=== PATIENT | female | born 1965 | race American Indian/Alaskan Native ===

== ENCOUNTER 2022-04-28 12:29 | Inpatient (IN) | payer MEDICARE, MEDICAID ==
--- NOTE | 2022-04-28 12:05 | Consultation ---
History of Present Illness Consult date: 04/28/22 History of present illness: [facility] Consult Note # Demographics Consult Type: Acute Stroke Level 1 (0-4.5 hrs) Patient Location: Emergency Room First Name: Nadine Last Name: Yovany Date of : 1965 Age: 56 Gender: Female Facility: [facility] Time of Initial Page ( Time): 04/28/2022, 11:43 Time of Return Call (Eastern Time): 04/28/2022, 11:43 # HPI Chief Complaint: speech changes weakness (focal) History: Per ER staff of EMS report, patient with dysarthria, facial droop & unsteady gait this morning at 6:30am. Last Known Normal: I have collected independent history specific to time last normal or last known well. We have collaborated with the provider and at this time, we have the most current timeline with the information that is available. 6:30am # Scores Time of exam and NIHSS ( Time): 04/28/2022, 11:53 Level of Consciousness 1a: [1] = Not alert; but arousable by minor stim LOC Questions 1b: [2] = Answers neither correctly LOC Commands 1c: [2] = Performs neither correctly Best Gaze 2: [0] = Normal Visual 3: [0] = No visual loss Facial Palsy 4: [0] = Normal symmetrical movements Motor Arm Left 5a: [4] = No movement Motor Arm Right 5b: [4] = No movement Motor Leg Left 6a: [4] = No movement Motor Leg Right 6b: [4] = No movement Limb Ataxia 7: [0] = Absent Sensory 8: [2] = Severe to total sensory loss Best Language 9: [3] = Mute Dysarthria 10: [2] = Severe dysarthria Extinction and Inattention 11: [0] = No abnormality NIHSS Total: 28 VAN Screening: Positive # Exam SBP: 260 DBP: 149 Mental Status: comatose Language: No spontaneous speech observed # ROS Unable to obtain ROS: altered mentation # PMH-FH-SH Past Medical History: hypertension stroke 2017 & 2020 Medications: antihypertensive aspirin # Data Glucose: 82 per EMR Time Head CT personally read by me ( Time): 04/28/2022, 12:[address]: no bleed preliminarily reviewed by me, please refer to radiology read for official reading # Assessment Impression: Altered Mental Status Stroke versus seizure versus PRES # Plan Thrombolytic/Intervention: NOT IV Thrombolysis or IA Intervention candidate Thrombolytic Exclusion: > 4.5 hours Target Blood Pressure: SBP < 220 Labs: ABG Ammonia B12 CBC comprehensive metabolic panel ESR hemoglobin A1c lipid panel thiamine troponin TSH urine drug screen ua Imaging: (urgency: STAT): CT Angiogram Head and CT Angiogram Neck AND call back with results if abnormal Imaging: (urgency: routine): MRI Brain without contrast Diagnostic Test: echo without bubble study EEG Therapy/Evaluation: NPO until swallow evaluation PT/OT evaluation speech/swallow consultation Medication: Continue outpatient medication regimen pending diagnostic results. DVT Prophylaxis: SCD chemical DVT prophylaxis Other: permissive hypertension telemetry monitoring I have discussed my recommendations with the referring provider Disposition: admit Medications and Allergies Allergies Allergy/AdvReac Type Severity Reaction Status Date / Time No Known Allergies Allergy Unverified 04/28/22 11:57
--- NOTE | 2022-04-28 12:32 | Emergency Department Report ---
ED Neuro Deficit HPI - General Chief Complaint: Neuro Symptoms/Deficit Stated Complaint: CVA Time Seen by Provider: 04/28/22 12:00 Source: EMS Mode of arrival: Stretcher Limitations: Altered Mental Status - History of Present Illness Initial Comments: Is a 56-year-old female history of stroke, history of hypertension here with complaints of possible stroke alert. Patient has dysarthria facial droop and unsteady gait that was noted at 6:30 AM. Patient presented to the emergency department after noon on today. She was outside of the window for tPA and patient unable to give any additional history at this time. - Related Data Allergies/Adverse Reactions: Allergies Allergy/AdvReac Type Severity Reaction Status Date / Time No Known Allergies Allergy Unverified 04/28/22 11:57 ED Review of Systems ROS: Stated complaint: CVA Other details as noted in HPI Comment: Unobtainable due to pts medical conditions ED Past Medical Hx - Past Medical History Hx Hypertension: Yes Hx CVA: Yes ED Neuro Physical Exam - General Limitations: Altered Mental Status General appearance: obtunded Suspected Stroke: Yes - Head Head exam: Present: atraumatic, normocephalic - Eye Eye exam: Present: other (dysconjugate gaze noted) - ENT ENT exam: Present: mucous membranes moist - Neck Neck exam: Present: normal inspection - Respiratory Respiratory exam: Present: normal lung sounds bilaterally. Absent: respiratory distress - Cardiovascular Cardiovascular Exam: Present: regular rate, normal rhythm. Absent: systolic murmur, diastolic murmur, rubs, gallop - GI/Abdominal GI/Abdominal exam: Present: soft, normal bowel sounds. Absent: distended, tenderness - Rectal Rectal exam: Present: deferred - Extremities Exam Extremities exam: Present: normal inspection - Back Exam Back exam: Present: normal inspection - Neurological Exam Neurological exam: Present: altered, motor sensory deficit - NIHSS Assessment Interval: Baseline 1a. Level of Consciousness: arousable/minor stimuli 1b. LOC Questions: answers no questions correctly 1c. LOC Commands: performs no tasks correctly 2. Best Gaze: normal 3. Visual: no visual loss 4. Facial Palsy: bilateral complete paralysis 5b. Motor Arm Right: no gravity effort 5a. Motor Arm Left: no gravity effort 6a. Motor Leg Left: no gravity effort 6b. Motor Leg Right: no gravity effort 7. Limb Ataxia: absent 8. Sensory: severe/total sensory loss 9. Best Language: mute/global aphasia 10. Dysarthria: severe dysarthria 11. Extinction/Inattention: visual/tactile inattention Total Score: 28 Stroke Severity: Severe Stroke - Psychiatric Psychiatric exam: Present: other (unable to assess) - Skin Skin exam: Present: warm, dry, intact, normal color. Absent: rash ED Course Vital Signs 04/28/22 04/28/22 04/28/22 12:02 12:36 12:37 Temperature Pulse Rate 80 54 L 73 Respiratory 15 19 17 Rate Blood Pressure Blood Pressure 224/106 239/110 [Right] O2 Sat by Pulse 100 100 95 Oximetry 04/28/22 04/28/22 04/28/22 12:38 12:46 13:00 Temperature Pulse Rate 78 69 70 Respiratory 11 L 16 Rate Blood Pressure 239/110 200/78 189/75 Blood Pressure [Right] O2 Sat by Pulse 99 100 Oximetry 04/28/22 04/28/22 04/28/22 13:16 13:30 13:46 Temperature Pulse Rate 69 70 72 Respiratory 26 H 13 15 Rate Blood Pressure 191/87 183/105 197/166 Blood Pressure [Right] O2 Sat by Pulse 99 99 100 Oximetry 04/28/22 04/28/22 04/28/22 14:00 15:28 19:35 Temperature 98.9 F Pulse Rate 71 70 90 Respiratory 12 17 20 Rate Blood Pressure 146/89 Blood Pressure 165/58 145/78 [Right] O2 Sat by Pulse 100 100 99 Oximetry - Consultations Consultation #1: 04/28/22 12:[address] Pena who is on-call for neuro. Given patient's last known normal was reportedly at 630 patient is not a tPA candidate. We are currently treating patient's blood pressure with the labetalol and he recommends CTA imaging which is ordered as well as MRI and admission for further work-up. - Lab Data Result diagrams: 04/28/22 12:43 04/28/22 12:43 Lab Results 04/28/22 04/28/22 04/28/22 Range/Units 12:43 12:43 12:43 WBC 3.1 L (4.5-11.0) K/mm3 RBC 4.38 (3.65-5.03) M/mm3 Hgb 13.7 (10.1-14.3) gm/dl Hct 41.2 (30.3-42.9) % MCV 94 (79-97) fl MCH 31 (28-32) pg MCHC 33 (30-34) % RDW 14.8 (13.2-15.2) % Plt Count 187 (140-440) K/mm3 Lymph % (Auto) 31.2 (13.4-35.0) % Victoria % (Auto) 8.2 H (0.0-7.3) % Eos % (Auto) 5.5 H (0.0-4.3) % Baso % (Auto) Spice Blender Lymph # (Auto) 1.0 L (1.2-5.4) K/mm3 Victoria # (Auto) 0.3 (0.0-0.8) K/mm3 Eos # (Auto) 0.2 (0.0-0.4) K/mm3 Baso # (Auto) 0.1 (0.0-0.1) K/mm3 Seg Neutrophils % 53.2 (40.0-70.0) % Seg Neutrophils # 1.7 L (1.8-7.7) K/mm3 PT 13.2 (12.2-14.9) Sec. INR 0.91 (0.87-1.13) APTT 29.7 (24.2-36.6) Sec. Thrombin Time 15.6 (15.1-19.6) Sec. Sodium 139 (137-145) mmol/L Potassium 3.9 (3.6-5.0) mmol/L Chloride 105.4 (98-107) mmol/L Carbon Dioxide 24 (22-30) mmol/L Anion Gap 14 mmol/L BUN 8 (7-17) mg/dL Creatinine 0.6 (0.6-1.2) mg/dL Estimated GFR > 60 ml/min BUN/Creatinine Ratio 13 % Glucose 100 (65-100) mg/dL Calcium 8.6 (8.4-10.2) mg/dL Total Bilirubin 0.50 (0.1-1.2) mg/dL AST 18 (5-40) units/L ALT 13 (7-56) units/L Alkaline Phosphatase 80 (35-129) units/L Total Creatine Kinase 313 H (30-135) units/L CK-MB (CK-2) 2.5 (0.0-4.0) ng/mL CK-MB (CK-2) Rel Index 0.7 (0-4) Troponin T < 0.010 (0.00-0.029) ng/mL Total Protein 7.5 (6.3-8.2) g/dL Albumin 3.9 (3.9-5) g/dL Albumin/Globulin Ratio 1.1 % Urine Color (Yellow) Urine Turbidity (Clear) Urine pH (5.0-7.0) Ur Specific [place] (1.003-1.030) Urine Protein (Negative) mg/dL Urine Glucose (UA) (Negative) mg/dL Urine Ketones (Negative) mg/dL Urine Blood (Negative) Urine Nitrite (Negative) Urine Bilirubin (Negative) Urine Urobilinogen (<2.0) mg/dL Ur Leukocyte Esterase (Negative) Urine WBC (Auto) (0.0-6.0) /HPF Urine RBC (Auto) (0.0-6.0) /HPF U Epithel Cells (Auto) (0-13.0) /HPF Urine Bacteria (Auto) (Negative) /HPF Urine WBC Clumps /HPF Urine Trichomonas /HPF Urine Opiates Screen Urine Methadone Screen Ur Barbiturates Screen Ur Phencyclidine Scrn Ur Amphetamines Screen U Benzodiazepines Scrn Urine Cocaine Screen U Marijuana (THC) Screen Drugs of Abuse Note Plasma/Serum Alcohol (0-0.07) % Blood Type Antibody Screen 04/28/22 04/28/22 04/28/22 Range/Units 12:43 12:43 12:57 WBC (4.5-11.0) K/mm3 RBC (3.65-5.03) M/mm3 Hgb (10.1-14.3) gm/dl Hct (30.3-42.9) % MCV (79-97) fl MCH (28-32) pg MCHC (30-34) % RDW (13.2-15.2) % Plt Count (140-440) K/mm3 Lymph % (Auto) (13.4-35.0) % Victoria % (Auto) (0.0-7.3) % Eos % (Auto) (0.0-4.3) % Baso % (Auto) Lymph # (Auto) (1.2-5.4) K/mm3 Victoria # (Auto) (0.0-0.8) K/mm3 Eos # (Auto) (0.0-0.4) K/mm3 Baso # (Auto) (0.0-0.1) K/mm3 Seg Neutrophils % (40.0-70.0) % Seg Neutrophils # (1.8-7.7) K/mm3 PT (12.2-14.9) Sec. INR (0.87-1.13) APTT (24.2-36.6) Sec. Thrombin Time (15.1-19.6) Sec. Sodium (137-145) mmol/L Potassium (3.6-5.0) mmol/L Chloride (98-107) mmol/L Carbon Dioxide (22-30) mmol/L Anion Gap mmol/L BUN (7-17) mg/dL Creatinine (0.6-1.2) mg/dL Estimated GFR ml/min BUN/Creatinine Ratio % Glucose (65-100) mg/dL Calcium (8.4-10.2) mg/dL Total Bilirubin (0.1-1.2) mg/dL AST (5-40) units/L ALT (7-56) units/L Alkaline Phosphatase (35-129) units/L Total Creatine Kinase (30-135) units/L CK-MB (CK-2) (0.0-4.0) ng/mL CK-MB (CK-2) Rel Index (0-4) Troponin T (0.00-0.029) ng/mL Total Protein (6.3-8.2) g/dL Albumin (3.9-5) g/dL Albumin/Globulin Ratio % Urine Color Yellow (Yellow) Urine Turbidity Hazy (Clear) Urine pH 8.0 H (5.0-7.0) Ur Specific [place] 1.025 (1.003-1.030) Urine Protein <15 mg/dl (Negative) mg/dL Urine Glucose (UA) Negative (Negative) mg/dL Urine Ketones 1 (Negative) mg/dL Urine Blood Negative (Negative) Urine Nitrite Negative (Negative) Urine Bilirubin Negative (Negative) Urine Urobilinogen 0.0 (<2.0) mg/dL Ur Leukocyte Esterase Trace (Negative) Urine WBC (Auto) 36.0 H (0.0-6.0) /HPF Urine RBC (Auto) 3.0 (0.0-6.0) /HPF U Epithel Cells (Auto) 15.0 H (0-13.0) /HPF Urine Bacteria (Auto) 2+ (Negative) /HPF Urine WBC Clumps 1+ /HPF Urine Trichomonas Present /HPF Urine Opiates Screen Urine Methadone Screen Ur Barbiturates Screen Ur Phencyclidine Scrn Ur Amphetamines Screen U Benzodiazepines Scrn Urine Cocaine Screen U Marijuana (THC) Screen Drugs of Abuse Note Plasma/Serum Alcohol 10.00 H (0-0.07) % Blood Type O POSITIVE Antibody Screen Negative 04/28/22 04/28/22 Range/Units 12:57 14:55 WBC (4.5-11.0) K/mm3 RBC (3.65-5.03) M/mm3 Hgb (10.1-14.3) gm/dl Hct (30.3-42.9) % MCV (79-97) fl MCH (28-32) pg MCHC (30-34) % RDW (13.2-15.2) % Plt Count (140-440) K/mm3 Lymph % (Auto) (13.4-35.0) % Victoria % (Auto) (0.0-7.3) % Eos % (Auto) (0.0-4.3) % Baso % (Auto) Lymph # (Auto) (1.2-5.4) K/mm3 [place] # (Auto) (0.0-0.8) K/mm3 Eos # (Auto) (0.0-0.4) K/mm3 Baso # (Auto) (0.0-0.1) K/mm3 Seg Neutrophils % (40.0-70.0) % Seg Neutrophils # (1.8-7.7) K/mm3 PT (12.2-14.9) Sec. INR (0.87-1.13) APTT (24.2-36.6) Sec. Thrombin Time (15.1-19.6) Sec. Sodium (137-145) mmol/L Potassium (3.6-5.0) mmol/L Chloride (98-107) mmol/L Carbon Dioxide (22-30) mmol/L Anion Gap mmol/L BUN (7-17) mg/dL Creatinine (0.6-1.2) mg/dL Estimated GFR ml/min BUN/Creatinine Ratio % Glucose (65-100) mg/dL Calcium (8.4-10.2) mg/dL Total Bilirubin (0.1-1.2) mg/dL AST (5-40) units/L ALT (7-56) units/L Alkaline Phosphatase (35-129) units/L Total Creatine Kinase (30-135) units/L CK-MB (CK-2) (0.0-4.0) ng/mL CK-MB (CK-2) Rel Index (0-4) Troponin T < 0.010 (0.00-0.029) ng/mL Total Protein (6.3-8.2) g/dL Albumin (3.9-5) g/dL Albumin/Globulin Ratio % Urine Color (Yellow) Urine Turbidity (Clear) Urine pH (5.0-7.0) Ur Specific [place] (1.003-1.030) Urine Protein (Negative) mg/dL Urine Glucose (UA) (Negative) mg/dL Urine Ketones (Negative) mg/dL Urine Blood (Negative) Urine Nitrite (Negative) Urine Bilirubin (Negative) Urine Urobilinogen (<2.0) mg/dL Ur Leukocyte Esterase (Negative) Urine WBC (Auto) (0.0-6.0) /HPF Urine RBC (Auto) (0.0-6.0) /HPF U Epithel Cells (Auto) (0-13.0) /HPF Urine Bacteria (Auto) (Negative) /HPF Urine WBC Clumps /HPF Urine Trichomonas /HPF Urine Opiates Screen Presumptive negative Urine Methadone Screen Presumptive negative Ur Barbiturates Screen Presumptive negative Ur Phencyclidine Scrn Presumptive negative Ur Amphetamines Screen Presumptive negative U Benzodiazepines Scrn Presumptive negative Urine Cocaine Screen Presumptive negative U Marijuana (THC) Screen Presumptive negative Drugs of Abuse Note Disclamer Plasma/Serum Alcohol (0-0.07) % Blood Type Antibody Screen - EKG Data -: EKG Interpreted by Ak EKG shows normal: sinus rhythm Rate: normal Interpretation: nonspecific ST-T wave dominic - Radiology Data Radiology results: report reviewed, image reviewed - Medical Decision Making Patient is a 56-year-old female with history of hypertension, stroke here with complaint of possible strokelike symptoms. Patient's last known normal was before 630 so she has not a candidate for tPA. EMS states that 630 she had dysarthria, trouble with gait, slurred speech. When she arrived here patient had a stroke score of 28 and was hypertensive. Patient went emergently to the CAT scanner for CT head and CTA head and neck. Patient CT head is clear and CTAs are pending. I have spoken with neuro on-call who recommend CTAs and MRI testing as well as work-up for other possible causes as well as treating patient 's blood pressure as this could be press versus hypertensive emergency. Plan for patient likely to be admitted will treat blood pressure we will try to inform family as well. - Thrombolytic Inclusion/Exclusion Thrombolytic Exclusion Criteria: Symptom Onset > 3 Hours Critical care attestation.: If time is entered above; I have spent that time in minutes in the direct care of this critically ill patient, excluding procedure time. ED Disposition Clinical Impression: Stroke, Hypertensive emergency Disposition: ADMITTED INPATIENT Is pt being admited?: Yes Does the pt Need Aspirin: Yes Condition: Serious
[2022-04-28 13:16] LABS: INR 0.91 (0.87-1.13)
[2022-04-28 13:17] LABS: Partial Thromboplastin Time 29.7 Sec. (24.2-36.6); Thrombin Time 15.6 Sec. (15.1-19.6)
--- NOTE | 2022-04-28 13:19 | Cat Scan Report ---
CT angio head, CT angio neck, CT head/brain wo con HISTORY:stroke sx 100 ML [facility] 350 COMPARISON: None. TECHNIQUE: CT of the head. CTA of the neck and head is performed after IV contrast. 3-D/MIP reformats were postprocessed. Percentage stenosis is determined by direct quantitative measurements of diseas ed internal carotid artery diameter compared with normal distal internal carotid artery reference seg ments or by criteria similar to NASCET where applicable. All CT scans at this location are performed using CT dose reduction for ALARA by means of automated exposure control. FINDINGS: CT HEAD: Intracranial: Owens-white matter differentiation is maintained. No intracranial hemorrhage. No extra a xial collection.. No hydrocephalus. No herniation. Sinuses: Paranasal sinuses and mastoid air cells are essentially clear. Orbits: Globes are intact. Calvarium: No acute fracture. CTA NECK: Aortic arch: No significant abnormality. Cervical vertebral arteries: No occlusion or hemodynamically significant stenosis. Common Carotid arteries: No occlusion or hemodynamically significant stenosis. Internal carotid arteries: No occlusion or hemodynamically significant stenosis. CTA HEAD: Intracranial vertebral arteries: No occlusion or significant stenosis. Basilar artery: No occlusion or significant stenosis. Posterior cerebral arteries: No occlusion or significant stenosis. Intracranial internal carotid arteries: No occlusion or significant stenosis. Anterior cerebral arteries: No occlusion or significant stenosis. Middle cerebral arteries: No occlusion or significant stenosis. No aneurysm. Additional findings: None. IMPRESSION: 1. CTA NECK: No occlusion or significant stenosis of the carotid or vertebral arteries. 2. CTA HEAD: No occlusion or significant stenosis of the major intracranial vasculature. Signer Name: Hipolito Sterling MD Signed: 04/28/2022 1:14 PM Workstation Name: [id number]
[2022-04-28 13:32] LABS: Basophils # (Auto) 0.1 K/mm3 (0.0-0.1); Eosinophils # (Auto) 0.2 K/mm3 (0.0-0.4); Eosinophils % (Auto) 5.5 % (0.0-4.3); Hematocrit 41.2 % (30.3-42.9); Hemoglobin 13.7 gm/dl (10.1-14.3); Lymphocytes % (Auto) 31.2 % (13.4-35.0); Mean Corpuscular HGB Conc 33 % (30-34); Mean Corpuscular Volume 94 fl (79-97); Monocytes # (Auto) 0.3 K/mm3 (0.0-0.8); Monocytes % (Auto) 8.2 % (0.0-7.3); Platelet Count 187 K/mm3 (140-440); Red Blood Count 4.38 M/mm3 (3.65-5.03); Red Cell Distribution Width 14.8 % (13.2-15.2)
[2022-04-28 13:55] LABS: Amphetamine Screen,Urine PRESUMPTIVE NEGATIVE; Benzodiazepines Screen,Urine PRESUMPTIVE NEGATIVE; Cannabinoid Screen,Urine PRESUMPTIVE NEGATIVE; Methadone Screen,Urine PRESUMPTIVE NEGATIVE; Opiate Screen,Urine PRESUMPTIVE NEGATIVE
[2022-04-28 13:56] LABS: Cocaine Screen,Urine PRESUMPTIVE NEGATIVE
[2022-04-28 13:57] LABS: Color,Urine Yellow (Yellow)
[2022-04-28 13:58] LABS: Bilirubin,Urine Negative (Negative); Blood,Urine Negative (Negative); Protein,Urine <15 mg/dL mg/dL (Negative)
[2022-04-28 14:03] LABS: Bacteria,Urine 2+ /HPF (Negative); Trichomonas,Urine Present /HPF
[2022-04-28 14:16] LABS: Creatine Kinase MB 2.5 ng/mL (0.0-4.0)
[2022-04-28 14:18] LABS: Alanine Aminotransferase 13 units/L (7-56); Albumin 3.9 g/dL (3.9-5); BUN/Creatinine Ratio 13; Blood Urea Nitrogen 8 mg/dL (7-17); Calcium 8.6 mg/dL (8.4-10.2); Hemolysis Index 7
[2022-04-28] MEDS ORDERED: MORPHINE 4 MG/1 ML INJ IV ONE (14:43)
[2022-04-28] MEDS ORDERED: cefTRIAXone/NS 1 GM/50 ML 1 GM/50 ML BAG IV ONE (14:43)
[2022-04-28] MEDS ORDERED: ASPIRIN 300 MG RECT SUPP PR ONE (14:43)
--- NOTE | 2022-04-28 15:33 | History and Physical Report ---
History of Present Illness Date of examination: 04/28/22 Date of admission: April 28, 2022 Chief complaint: Left-sided weakness for 2 hours History of present illness: 56-year-old -Spanish female with history of hypertension and morbid obesity was in an argument with a female regarding her house rental payment. Police was called by the shell mold bonder. Patient became very anxious and went into a panic attack when EMS was called. Per EMS patient blood pressure was very high and was brought to the emergency room for evaluation. Patient also complained of left-sided weakness and dysarthria. Code stroke was called. Patient's left- sided weakness and dysarthria improved while in the emergency room. Patient was apparently unsteady around 6:30 AM. Past History Past Medical History: hypertension, other (Morbid obesity) Past Surgical History: No surgical history Social history: lives with family, full code Family history: hypertension Medications and Allergies Allergies Allergy/AdvReac Type Severity Reaction Status Date / Time No Known Allergies Allergy Unverified 04/28/22 11:57 Review of Systems All systems: negative Constitutional: no weight loss, no weight gain, no fever Ears, nose, mouth and throat: no ear pain, no ear discharge Breasts: deferred Cardiovascular: lightheadedness, no chest pain, no orthopnea, no palpitations Respiratory: no cough, no cough with sputum Gastrointestinal: no abdominal pain, no nausea, no vomiting Musculoskeletal: no neck stiffness, no neck pain, no shooting arm pain Neurological: weakness (Left-sided) Psychiatric: anxiety Endocrine: no cold intolerance, no heat intolerance Exam - Constitutional Vitals: Temp Pulse Resp BP Pulse Ox 70 17 165/58 100 04/28/22 15:28 04/28/22 15:28 04/28/22 15:28 04/28/22 15:28 General appearance: Present: no acute distress, well-nourished - EENT Eyes: Present: PERRL ENT: hearing intact, clear oral mucosa - Neck Neck: Present: supple, normal ROM - Respiratory Respiratory effort: normal Respiratory: bilateral: CTA - Cardiovascular Heart rate: 78 Rhythm: regular Heart Sounds: Present: S1 & S2. Absent: rub, click - Extremities Extremities: pulses symmetrical, No edema Peripheral Pulses: within normal limits - Abdominal General gastrointestinal: Present: soft, non-tender, non-distended, normal bowel sounds Female genitourinary: Present: normal - Integumentary Integumentary: Present: clear, warm, dry - Musculoskeletal Musculoskeletal: gait normal, strength equal bilaterally - Psychiatric Psychiatric: appropriate mood/affect, intact judgment & insight - Neurologic Neurologic: CNII-XII intact, moves all extremities HEART Score - HEART Score History: Moderately suspicious Age: 45-65 Risk factors: 1-2 risk factors Troponin: Troponin T < 0.010 ng/mL (0.00-0.029) 04/28/22 12:43 Troponin: < normal limit Results - Labs CBC & Chem 7: 04/29/22 05:49 04/29/22 05:49 Labs: Laboratory Last Values WBC 3.1 K/mm3 (4.5-11.0) L 04/28/22 12:43 RBC 4.38 M/mm3 (3.65-5.03) 04/28/22 12:43 Hgb 13.7 gm/dl (10.1-14.3) 04/28/22 12:43 Hct 41.2 % (30.3-42.9) 04/28/22 12:43 MCV 94 fl (79-97) 04/28/22 12:43 MCH 31 pg (28-32) 04/28/22 12:43 MCHC 33 % (30-34) 04/28/22 12:43 RDW 14.8 % (13.2-15.2) 04/28/22 12:43 Plt Count 187 K/mm3 (140-440) 04/28/22 12:43 Lymph % (Auto) 31.2 % (13.4-35.0) 04/28/22 12:43 Throckmorton % (Auto) 8.2 % (0.0-7.3) H 04/28/22 12:43 Eos % (Auto) 5.5 % (0.0-4.3) H 04/28/22 12:43 Baso % (Auto) General Lithographic Worker 04/28/22 12:43 Lymph # (Auto) 1.0 K/mm3 (1.2-5.4) L 04/28/22 12:43 Throckmorton # (Auto) 0.3 K/mm3 (0.0-0.8) 04/28/22 12:43 Eos # (Auto) 0.2 K/mm3 (0.0-0.4) 04/28/22 12:43 Baso # (Auto) 0.1 K/mm3 (0.0-0.1) 04/28/22 12:43 Seg Neutrophils % 53.2 % (40.0-70.0) 04/28/22 12:43 Seg Neutrophils # 1.7 K/mm3 (1.8-7.7) L 04/28/22 12:43 PT 13.2 Sec. (12.2-14.9) 04/28/22 12:43 INR 0.91 (0.87-1.13) 04/28/22 12:43 APTT 29.7 Sec. (24.2-36.6) 04/28/22 12:43 Thrombin Time 15.6 Sec. (15.1-19.6) 04/28/22 12:43 Sodium 139 mmol/L (137-145) 04/28/22 12:43 Potassium 3.9 mmol/L (3.6-5.0) 04/28/22 12:43 Chloride 105.4 mmol/L (98-107) 04/28/22 12:43 Carbon Dioxide 24 mmol/L (22-30) 04/28/22 12:43 Anion Gap 14 mmol/L 04/28/22 12:43 BUN 8 mg/dL (7-17) 04/28/22 12:43 Creatinine 0.6 mg/dL (0.6-1.2) 04/28/22 12:43 Estimated GFR > 60 ml/min 04/28/22 12:43 BUN/Creatinine Ratio 13 % 04/28/22 12:43 Glucose 100 mg/dL (65-100) 04/28/22 12:43 Calcium 8.6 mg/dL (8.4-10.2) 04/28/22 12:43 Total Bilirubin 0.50 mg/dL (0.1-1.2) 04/28/22 12:43 AST 18 units/L (5-40) 04/28/22 12:43 ALT 13 units/L (7-56) 04/28/22 12:43 Alkaline Phosphatase 80 units/L (35-129) 04/28/22 12:43 Total Creatine Kinase 313 units/L (30-135) H 04/28/22 12:43 CK-MB (CK-2) 2.5 ng/mL (0.0-4.0) 04/28/22 12:43 CK-MB (CK-2) Rel Index 0.7 (0-4) 04/28/22 12:43 Troponin T < 0.010 ng/mL (0.00-0.029) 04/28/22 12:43 Total Protein 7.5 g/dL (6.3-8.2) 04/28/22 12:43 Albumin 3.9 g/dL (3.9-5) 04/28/22 12:43 Albumin/Globulin Ratio 1.1 % 04/28/22 12:43 Urine Color Yellow (Yellow) 04/28/22 12:57 Urine Turbidity Hazy (Clear) 04/28/22 12:57 Urine pH 8.0 (5.0-7.0) H 04/28/22 12:57 Ur Specific Watkins 1.025 (1.003-1.030) 04/28/22 12:57 Urine Protein <15 mg/dl mg/dL (Negative) 04/28/22 12:57 Urine Glucose (UA) Negative mg/dL (Negative) 04/28/22 12:57 Urine Ketones 1 mg/dL (Negative) 04/28/22 12:57 Urine Blood Negative (Negative) 04/28/22 12:57 Urine Nitrite Negative (Negative) 04/28/22 12:57 Urine Bilirubin Negative (Negative) 04/28/22 12:57 Urine Urobilinogen 0.0 mg/dL (<2.0) 04/28/22 12:57 Ur Leukocyte Esterase Trace (Negative) 04/28/22 12:57 Urine WBC (Auto) 36.0 /HPF (0.0-6.0) H 04/28/22 12:57 Urine RBC (Auto) 3.0 /HPF (0.0-6.0) 04/28/22 12:57 U Epithel Cells (Auto) 15.0 /HPF (0-13.0) H 04/28/22 12:57 Urine Bacteria (Auto) 2+ /HPF (Negative) 04/28/22 12:57 Urine WBC Clumps 1+ /HPF 04/28/22 12:57 Urine Trichomonas Present /HPF 04/28/22 12:57 Urine Opiates Screen Presumptive negative 04/28/22 12:57 Urine Methadone Screen Presumptive negative 04/28/22 12:57 Ur Barbiturates Screen Presumptive negative 04/28/22 12:57 Ur Phencyclidine Scrn Presumptive negative 04/28/22 12:57 Ur Amphetamines Screen Presumptive negative 04/28/22 12:57 U Benzodiazepines Scrn Presumptive negative 04/28/22 12:57 Urine Cocaine Screen Presumptive negative 04/28/22 12:57 U Marijuana (THC) Screen Presumptive negative 04/28/22 12:57 Drugs of Abuse Note Disclamer 04/28/22 12:57 Plasma/Serum Alcohol 10.00 % (0-0.07) H 04/28/22 12:43 Blood Type O POSITIVE 04/28/22 12:43 Antibody Screen Negative 04/28/22 12:43 Short CBC 04/28/22 04/29/22 Range/Units 12:43 05:49 WBC 3.1 L 4.0 L (4.5-11.0) K/mm3 Hgb 13.7 12.6 (10.1-14.3) gm/dl Hct 41.2 38.2 (30.3-42.9) % Plt Count 187 169 (140-440) K/mm3 BMP 04/28/22 04/29/22 12:43 05:49 Sodium 139 138 Potassium 3.9 3.8 Chloride 105.4 104.0 Carbon Dioxide 24 25 BUN 8 14 Creatinine 0.6 0.8 Glucose 100 95 Calcium 8.6 8.5 Cardiac Enzymes 04/28/22 04/28/22 Range/Units 12:43 14:55 Total Creatine Kinase 313 H (30-135) units/L CK-MB (CK-2) 2.5 (0.0-4.0) ng/mL Troponin T < 0.010 < 0.010 (0.00-0.029) ng/mL Liver Function 04/28/22 04/29/22 Range/Units 12:43 05:49 Total Bilirubin 0.50 0.60 (0.1-1.2) mg/dL AST 18 14 (5-40) units/L ALT 13 11 (7-56) units/L Alkaline Phosphatase 80 67 (35-129) units/L Albumin 3.9 3.4 L (3.9-5) g/dL Urine 04/28/22 Range/Units 12:57 Urine Color Yellow (Yellow) Urine pH 8.0 H (5.0-7.0) Ur Specific Watkins 1.025 (1.003-1.030) Urine Protein <15 mg/dl (Negative) mg/dL Urine Glucose (UA) Negative (Negative) mg/dL - Imaging and Cardiology EKG: report reviewed (Sinus rhythm LVH by voltage criteria) Assessment and Plan Advance Directives: Yes (Full code) VTE prophylaxis?: Chemical Plan of care discussed with patient/family: Yes - Patient Problems (1) Hypertensive emergency Current Visit: Yes Status: Acute Plan to address problem: Patient initiated on valsartan 160 twice daily and IV hydralazine 10 mg every 3 as needed (2) TIA (transient ischemic attack) Current Visit: Yes Status: Acute Plan to address problem: TIA work-up Patient had head CT and neck CTA which were negative Echocardiogram is pending Neurology consult requested MRI brain was not requested (3) Morbid obesity Current Visit: Yes Status: Chronic Plan to address problem: Patient has BMI of 48 Patient to be referred to bariatric surgery---Dr Lancaster as outpatient (4) Urinary tract infection Current Visit: Yes Status: Acute Qualifiers: Urinary tract infection type: acute cystitis Plan to address problem: On IV ceftriaxone (5) DVT prophylaxis Current Visit: Yes Status: Acute Plan to address problem: On heparin and GI prophylaxis (6) Advance care planning Current Visit: Yes Status: Acute Plan to address problem: Disease education conducted, care plan discussed, diagnosis discussed, prognosis discussed. Patient is full code. Patient acknowledges understanding and agreement with care plan. +30 minutes.
[2022-04-28] MEDS ORDERED: ONDANSETRON 4 MG/2 ML INJ IV PRN (16:12)
[2022-04-28] MEDS ORDERED: MORPHINE 2 MG/1 ML INJ IV PRN (16:12)
[2022-04-28] MEDS ORDERED: ACETAMINOPHEN 325 MG TAB PO PRN (16:12)
[2022-04-28] MEDS ORDERED: METOCLOPRAMIDE 10 MG/2 ML INJ IV PRN (16:12)
[2022-04-28] MEDS: HEPARIN 5,000 UNIT/1 ML VIAL SUB-Q SCH (22:00)
[2022-04-28] MEDS: FAMOTIDINE 20 MG TAB PO SCH (23:10)
[2022-04-28] MEDS: oxyCODONE /ACETAMINOPHEN 5-325MG TAB PO PRN (23:11)
[2022-04-28] MEDS ORDERED: hydrALAZINE 20 MG/1 ML INJ IV PRN (23:34)
[2022-04-28] MEDS: VALSARTAN 160MG TAB PO SCH (23:48)
[2022-04-29 06:14] LABS: Basophils % (Auto) 0.7 % (0.0-1.8); Eosinophils # (Auto) 0.3 K/mm3 (0.0-0.4); Eosinophils % (Auto) 6.8 % (0.0-4.3); Hematocrit 38.2 % (30.3-42.9); Hemoglobin 12.6 gm/dl (10.1-14.3); Lymphocytes # (Auto) 1.7 K/mm3 (1.2-5.4); Lymphocytes % (Auto) 43.2 % (13.4-35.0); Mean Corpuscular HGB Conc 33 % (30-34); Mean Corpuscular Volume 95 fl (79-97); Monocytes # (Auto) 0.5 K/mm3 (0.0-0.8); Monocytes % (Auto) 11.7 % (0.0-7.3); Platelet Count 169 K/mm3 (140-440); Red Blood Count 4.01 M/mm3 (3.65-5.03); Red Cell Distribution Width 14.8 % (13.2-15.2)
[2022-04-29 06:35] LABS: Alanine Aminotransferase 11 units/L (7-56); Albumin 3.4 g/dL (3.9-5); BUN/Creatinine Ratio 18; Blood Urea Nitrogen 14 mg/dL (7-17); Calcium 8.5 mg/dL (8.4-10.2); Hemolysis Index 11
--- NOTE | 2022-04-29 08:48 | Consultation ---
History of Present Illness Consult date: 04/29/22 Reason for Consult: CVA Chief complaint: "I had a panic attack." History of present illness: 56 yo female with htn, 3 strokes w/ residual speech/language difficulty and right eye visual loss, who presents where she just found out that she had been scammed and felt her blood pressure go up and then she noticed chest p ain/pressure and a change in consciousness. She notes she could feel the headache/pressure builing up at the back of her head, which she usually feels when her blood pressure goes up. Past History Past Medical History: hypertension, stroke, other (Morbid obesity) Past Surgical History: No surgical history Social history: lives with family, full code Family history: hypertension Medications and Allergies Allergies Allergy/AdvReac Type Severity Reaction Status Date / Time No Known Allergies Allergy Unverified 04/28/22 11:57 Active Meds: Active Medications Acetaminophen (Acetaminophen 325 Mg Tab) 650 mg PO Q4H PRN PRN Reason: Pain MILD(1-3)/Fever >100.5/ROBBINS Aspirin (Aspirin 325 Mg Tab) 325 mg PO QDAY [facility] Clopidogrel Bisulfate (Clopidogrel 75 Mg Tab) 75 mg PO QDAY [facility] Famotidine (Famotidine 20 Mg Tab) 20 mg PO BID [facility] Last Admin: 04/28/22 23:10 Dose: 20 mg Heparin Sodium (Porcine) (Heparin 5,000 Unit/1 Ml Vial) 5,000 unit SUB-Q Q12HR [facility] Last Admin: 04/28/22 22:00 Dose: 5,000 unit Hydralazine HCl (Hydralazine 20 Mg/1 Ml Inj) 10 mg IV Q4HR PRN PRN Reason: hypertention Ceftriaxone Sodium (Rocephin/Ns 2 Gm/100 Ml) 2 gm in 100 mls @ 200 mls/hr IV Q24HR [facility]; Protocol Stop: 04/30/22 10:29 Metoclopramide HCl (Metoclopramide 10 Mg/2 Ml Inj) 10 mg IV Q6H PRN PRN Reason: Nausea And Vomiting Metronidazole (Metronidazole 500 Mg Tab) 500 mg PO Q8HR [facility]; Protocol Stop: 05/06/22 08:59 Morphine Sulfate (Morphine 2 Mg/1 Ml Inj) 2 mg IV Q4H PRN PRN Reason: Pain, Moderate (4-6) Ondansetron HCl (Ondansetron 4 Mg/2 Ml Inj) 4 mg IV Q8H PRN PRN Reason: Nausea And Vomiting Oxycodone/Acetaminophen (Oxycodone /Acetaminophen 5-325mg Tab) 1 tab PO Q6H PRN PRN Reason: Pain, Moderate (4-6) Last Admin: 04/28/22 23:11 Dose: 1 tab Sodium Chloride (Sodium Chloride 0.9% 10 Ml Flush Syringe) 10 ml IV BID [facility] Last Admin: 04/28/22 23:11 Dose: 10 ml Sodium Chloride (Sodium Chloride 0.9% 10 Ml Flush Syringe) 10 ml IV PRN PRN PRN Reason: LINE FLUSH Valsartan (Valsartan 160mg Tab) 160 mg PO BID [facility] Last Admin: 04/28/22 23:48 Dose: 160 mg Review of Systems All systems: negative (as per hpi;) Physical Examination - Vital Signs Vital Signs: Vital Signs Pulse Resp BP Pulse Ox 80 15 224/106 96 04/28/22 12:02 04/28/22 12:02 04/28/22 12:02 04/28/22 12:02 - Physical Exam Narrative exam: Gen: nad, well-nourished; Head: normocephalic; Eyes: no gaze deviation; no ptosis; ENT: normal vocalization; CVS: warm and well-perfused; Pulm: no respiratory distress; GI: appears non-distended; Ext: no cyanosis appreciated at distal extremities; Skin: no acute rash at distal extremities; Heme: no pathologic ecchymosis appreciated at distal extremities; Neuro: alert, oriented to name, age, not month, not year, intermittent stuttering dysarthria, intermittent expressive dysphasia, CN 2 - Left pupil reactive to room light; right eye covered with dressing; CN 3, 4, 6 - Left EOMI, CN 5 - facial sensation decreased on the right to light touch, CN 7 - facial movement symmetric, CN 8 - hearing grossly intact, CN 9, 10 - spontaneous swallow noted, CN 11 symmetric shoulder movement, CN 12 - tongue midline; Flaquita r - at least 2-/5 at all exts; Sensory - light touch decreased on the right, Cerebellar - difficulty with bilateral fnf /hts, Gait - deferred secondary to fall risk; NIHSS (1a.) Level of Consciousness:0 (1b.) LOC Questions:1 (1c.) LOC Commands:0 (2.) Best Gaze:0 (3.) Visual:2 (4.) Facial Palsy:0 (5a.) Motor Arm, Left:2 (5b.) Motor Arm, Right:2 (6a.) Motor Leg, Left:2 (6b.) Motor Leg, Right:2 (7.) Limb Ataxia:0 (8.) Sensory:1 (9.) Best Language:1 (10.) Dysarthria:1 (11.) Extinction and Inattention:0 NIHSS Total Score: 14 Results - Laboratory Findings CBC and BMP: 04/29/22 05:49 04/29/22 05:49 Abnormal Lab Findings: Abnormal Labs 04/28/22 04/28/22 04/28/22 12:43 12:43 12:43 WBC 3.1 L Lymph % (Auto) Rogers % (Auto) 8.2 H Eos % (Auto) 5.5 H Lymph # (Auto) 1.0 L Seg Neutrophils % Seg Neutrophils # 1.7 L Total Creatine Kinase 313 H Albumin Urine pH Urine WBC (Auto) U Epithel Cells (Auto) Plasma/Serum Alcohol 10.00 H 04/28/22 04/29/22 04/29/22 12:57 05:49 05:49 WBC 4.0 L Lymph % (Auto) 43.2 H Rogers % (Auto) 11.7 H Eos % (Auto) 6.8 H Lymph # (Auto) Seg Neutrophils % 37.6 L Seg Neutrophils # 1.5 L Total Creatine Kinase Albumin 3.4 L Urine pH 8.0 H Urine WBC (Auto) 36.0 H U Epithel Cells (Auto) 15.0 H Plasma/Serum Alcohol Assessment and Plan 56 yo female with htn, 3 strokes who presents with a panic attack. 1. Panic attack / Conversion Disorder - per primary team. 2. Hx of Stroke - if ischemic, recommend antiplatelet/statin therapy 3. Hypertension - aim for normotension per primary team. 4. Anxiety Disorder - consult psychiatry. 5. No further acute neurologic workup indicated at present. Neurology will signoff. Leobardo Owens MD Neurology [id number]
--- NOTE | 2022-04-29 08:55 | Electrocardiograph Report ---
[facility] Test Date: 2022-04-28 Test Time: 12:20:25 Pat Name: NALDO WATKINS Department: Room: A486 Gender: F Teamsite Developer: AMINA : 1965 Requested By: YVON NIÑO Order Number: [id number] Reading MD: Adithya Hernadez Measurements Intervals [place] Rate: 83 P: 50 NE: 187 QRS: 37 QRSD: 90 T: 51 QT: 416 QTc: 489 Interpretive Statements Sinus rhythm Borderline ST elevation, anterior leads No previous ECG available for comparison Electronically Signed On 04-29-2022 8:54:52 EDT by Adithya Hernadez
--- NOTE | 2022-04-29 08:57 | Electrocardiograph Report ---
[facility] Test Date: 2022-04-29 Test Time: 07:54:55 Pat Name: NALDO WATKINS Department: Room: A486 Gender: F Orthotic Technician: PAULINE : 1965 Requested By: YVON NIÑO Order Number: [id number] Reading MD: Adithya Hernadez Measurements Intervals [place] Rate: 72 P: 33 VT: 199 QRS: 36 QRSD: 83 T: 77 QT: 429 QTc: 471 Interpretive Statements Sinus rhythm Anterior infarct, old Compared to ECG 04/28/2022 12:20:25 Myocardial infarct finding now present ST (T wave) deviation no longer present Electronically Signed On 04-29-2022 8:57:12 EDT by Adithya Hernadez
[2022-04-29] MEDS: metroNIDAZOLE 500 MG TAB PO SCH ×3 (09:03→21:09)
[2022-04-29 09:47] LABS: Chol/HDL Ratio 3.39 %
--- NOTE | 2022-04-29 11:59 | Magnetic Resonance Report ---
MR brain wo con INDICATION / CLINICAL INFORMATION: Workup of possible acute ischemic CVA, HEADACHES, SENSTITIVITY TO LIGHT. TECHNIQUE: Multiplanar, multisequence MR images of the brain were obtained. COMPARISON: None available. FINDINGS: INTRACRANIAL: No restricted diffusion. No hemorrhage. Ventricular caliber is normal. No extra-axial c ollection. No mass. No herniation. Major intracranial vascular flow voids are preserved. ORBITS: No significant abnormality of visualized orbits. SINUSES / MASTOIDS: No significant abnormality of visualized sinuses and mastoid air cells. ADDITIONAL FINDINGS: None. IMPRESSION: 1. No acute infarction. No significant intracranial abnormality. Signer Name: Hipolito Sterling MD Signed: 04/29/2022 11:54 AM Workstation Name: [id number]
[2022-04-29] MEDS: ASPIRIN 325 MG TAB PO SCH (13:03)
[2022-04-29] MEDS: CLOPIDOGREL 75 MG TAB PO SCH (13:10)
[2022-04-29] MEDS: FAMOTIDINE 20 MG TAB PO SCH ×2 (13:15→21:10)
[2022-04-29] MEDS: VALSARTAN 160MG TAB PO SCH ×2 (13:15→21:07)
[2022-04-29] MEDS: HEPARIN 5,000 UNIT/1 ML VIAL SUB-Q SCH ×2 (13:15→21:08)
--- NOTE | 2022-04-29 15:14 | Progress Note ---
Assessment and Plan Assessment and plan: #TIAruled out #Panic attack #History of acute ischemic CVA x2 Unremarkable CT head noncontrast and CTA head and neck. TTE revealing EF 60 to 65% with normal-sized LV, normal LV systolic function, mild concentric LVH, and mild eccentric aortic insufficiency. Neurology consulted; appreciate recs. MRI brain without contrast unremarkable. Continue aspirin 81 mg daily, Plavix 75 mg daily, and atorvastatin 40 mg daily PT and OT consulted; pending recs. Consulting psychiatry for management of panic attack; pending recs. #Hypertensive emergencyresolved - home medications: Unknown - current medications: Valsartan 160 mg twice daily and nifedipine 60 mg daily - SBP goal <160 and DBP goal <90 while inpatient - continue to monitor #Acute hypoxic respiratory failureresolved - etiology: Likely secondary to anxiety - baseline oxygen requirements: Room air - supplemental oxygen: 2 L nasal cannula - Continue protocol: continue pulse oximetry, wean oxygen as tolerated, ordered incentive spirometry and educated patient on how to use it and its importance. - continue to monitor #Acute cystitis without hematuria #Trichomoniasis Urinalysis revealing trace leukocyte esterase, WBC 36, 2+ bacteria, 1+ WBC clumps, and positive for trichomonas Continue Rocephin 1 g daily and Flagyl 500 mg every 8 hours x7-day course #Mild protein caloric malnutrition Albumin 3.4 Starting dietary supplementation #Morbid obesity #Weight loss counseling #Exercise counseling - BMI 48 - Counseled patient on the importance of weight loss, incorporating exercise, and dietary changes (lean meats, fresh fruits and vegetables, and water intake). Patient expresses understanding. - Time: +15 min #Advanced care planning -Disease education conducted, care plan discussed, diagnoses discussed, prognosis discussed, and patient acknowledges understanding with care plan -Time: +30 min Disposition Plan: Continue medical management Total Time Spent with Patient (Minutes): 45 min History Interval history: No acute events overnight. Hospitalist Physical - Constitutional Vitals: Temp Pulse Resp BP Pulse Ox 97.8 F 82 16 162/73 95 04/29/22 12:11 04/29/22 12:11 04/29/22 12:11 04/29/22 12:11 04/29/22 12:11 General appearance: Present: no acute distress, well-nourished, obese - EENT Eyes: Present: PERRL, EOM intact ENT: hearing intact, clear oral mucosa, dentition normal - Neck Neck: Present: supple, normal ROM - Respiratory Respiratory effort: normal - Cardiovascular Rhythm: regular Heart Sounds: Present: S1 & S2 - Extremities Extremities: no ischemia, pulses intact, pulses symmetrical, No edema, normal temperature, normal color Peripheral Pulses: within normal limits - Abdominal General gastrointestinal: soft, non-tender, non-distended, normal bowel sounds - Integumentary Integumentary: Present: clear, warm, dry - Psychiatric Psychiatric: appropriate mood/affect, cooperative - Neurologic Neurologic: CNII-XII intact, other (right upper and lower extremity weakness. ) - Allied Health Allied health notes reviewed: nursing HEART Score - HEART Score Age: 45-65 Risk factors: 1-2 risk factors Troponin: Troponin T < 0.010 ng/mL (0.00-0.029) 04/29/22 12:46 Troponin: < normal limit Results - Labs CBC & Chem 7: 04/29/22 05:49 04/29/22 05:49 Labs: Laboratory Last Values WBC 4.0 K/mm3 (4.5-11.0) L 04/29/22 05:49 RBC 4.01 M/mm3 (3.65-5.03) 04/29/22 05:49 Hgb 12.6 gm/dl (10.1-14.3) 04/29/22 05:49 Hct 38.2 % (30.3-42.9) 04/29/22 05:49 MCV 95 fl (79-97) 04/29/22 05:49 MCH 32 pg (28-32) 04/29/22 05:49 MCHC 33 % (30-34) 04/29/22 05:49 RDW 14.8 % (13.2-15.2) 04/29/22 05:49 Plt Count 169 K/mm3 (140-440) 04/29/22 05:49 Lymph % (Auto) 43.2 % (13.4-35.0) H 04/29/22 05:49 [place] % (Auto) 11.7 % (0.0-7.3) H 04/29/22 05:49 Eos % (Auto) 6.8 % (0.0-4.3) H 04/29/22 05:49 Baso % (Auto) 0.7 % (0.0-1.8) 04/29/22 05:49 Lymph # (Auto) 1.7 K/mm3 (1.2-5.4) 04/29/22 05:49 [place] # (Auto) 0.5 K/mm3 (0.0-0.8) 04/29/22 05:49 Eos # (Auto) 0.3 K/mm3 (0.0-0.4) 04/29/22 05:49 Baso # (Auto) 0.0 K/mm3 (0.0-0.1) 04/29/22 05:49 Seg Neutrophils % 37.6 % (40.0-70.0) L 04/29/22 05:49 Seg Neutrophils # 1.5 K/mm3 (1.8-7.7) L 04/29/22 05:49 PT 13.2 Sec. (12.2-14.9) 04/28/22 12:43 INR 0.91 (0.87-1.13) 04/28/22 12:43 APTT 29.7 Sec. (24.2-36.6) 04/28/22 12:43 Thrombin Time 15.6 Sec. (15.1-19.6) 04/28/22 12:43 Sodium 138 mmol/L (137-145) 04/29/22 05:49 Potassium 3.8 mmol/L (3.6-5.0) 04/29/22 05:49 Chloride 104.0 mmol/L (98-107) 04/29/22 05:49 Carbon Dioxide 25 mmol/L (22-30) 04/29/22 05:49 Anion Gap 13 mmol/L 04/29/22 05:49 BUN 14 mg/dL (7-17) 04/29/22 05:49 Creatinine 0.8 mg/dL (0.6-1.2) 04/29/22 05:49 Estimated GFR > 60 ml/min 04/29/22 05:49 BUN/Creatinine Ratio 18 % 04/29/22 05:49 Glucose 95 mg/dL (65-100) 04/29/22 05:49 Hemoglobin A1c 5.1 % (4-6) 04/29/22 09:05 Calcium 8.5 mg/dL (8.4-10.2) 04/29/22 05:49 Total Bilirubin 0.60 mg/dL (0.1-1.2) 04/29/22 05:49 AST 14 units/L (5-40) 04/29/22 05:49 ALT 11 units/L (7-56) 04/29/22 05:49 Alkaline Phosphatase 67 units/L (35-129) 04/29/22 05:49 Total Creatine Kinase 313 units/L (30-135) H 04/28/22 12:43 CK-MB (CK-2) 2.5 ng/mL (0.0-4.0) 04/28/22 12:43 CK-MB (CK-2) Rel Index 0.7 (0-4) 04/28/22 12:43 Troponin T < 0.010 ng/mL (0.00-0.029) 04/29/22 12:46 Total Protein 6.6 g/dL (6.3-8.2) 04/29/22 05:49 Albumin 3.4 g/dL (3.9-5) L 04/29/22 05:49 Albumin/Globulin Ratio 1.1 % 04/29/22 05:49 Triglycerides 130 mg/dL (2-149) 04/29/22 09:05 Cholesterol 146 mg/dL (50-199) 04/29/22 09:05 LDL Cholesterol Direct 84 mg/dL (50-130) 04/29/22 09:05 HDL Cholesterol 43 mg/dL (40-59) 04/29/22 09:05 Cholesterol/HDL Ratio 3.39 % 04/29/22 09:05 Urine Color Yellow (Yellow) 04/28/22 12:57 Urine Turbidity Hazy (Clear) 04/28/22 12:57 Urine pH 8.0 (5.0-7.0) H 04/28/22 12:57 Ur Specific [place] 1.025 (1.003-1.030) 04/28/22 12:57 Urine Protein <15 mg/dl mg/dL (Negative) 04/28/22 12:57 Urine Glucose (UA) Negative mg/dL (Negative) 04/28/22 12:57 Urine Ketones 1 mg/dL (Negative) 04/28/22 12:57 Urine Blood Negative (Negative) 04/28/22 12:57 Urine Nitrite Negative (Negative) 04/28/22 12:57 Urine Bilirubin Negative (Negative) 04/28/22 12:57 Urine Urobilinogen 0.0 mg/dL (<2.0) 04/28/22 12:57 Ur Leukocyte Esterase Trace (Negative) 04/28/22 12:57 Urine WBC (Auto) 36.0 /HPF (0.0-6.0) H 04/28/22 12:57 Urine RBC (Auto) 3.0 /HPF (0.0-6.0) 04/28/22 12:57 U Epithel Cells (Auto) 15.0 /HPF (0-13.0) H 04/28/22 12:57 Urine Bacteria (Auto) 2+ /HPF (Negative) 04/28/22 12:57 Urine WBC Clumps 1+ /HPF 04/28/22 12:57 Urine Trichomonas Present /HPF 04/28/22 12:57 Urine Opiates Screen Presumptive negative 04/28/22 12:57 Urine Methadone Screen Presumptive negative 04/28/22 12:57 Ur Barbiturates Screen Presumptive negative 04/28/22 12:57 Ur Phencyclidine Scrn Presumptive negative 04/28/22 12:57 Ur Amphetamines Screen Presumptive negative 04/28/22 12:57 U Benzodiazepines Scrn Presumptive negative 04/28/22 12:57 Urine Cocaine Screen Presumptive negative 04/28/22 12:57 U Marijuana (THC) Screen Presumptive negative 04/28/22 12:57 Drugs of Abuse Note Disclamer 04/28/22 12:57 Plasma/Serum Alcohol 10.00 % (0-0.07) H 04/28/22 12:43 Blood Type O POSITIVE 04/28/22 12:43 Antibody Screen Negative 04/28/22 12:43 Microbiology: Microbiology 04/28/22 12:57 Urine,Clean Catch Urine Culture - Preliminary [place]/IV: Voiding Method Indwelling Catheter Active Medications - Current Medications Current Medications: Generic Name Dose Route Start Last Admin Trade Name Freq PRN Reason Stop Dose Admin Acetaminophen 650 mg 04/28/22 16:12 Acetaminophen 325 Mg Tab PO Q4H PRN Pain MILD(1-3)/Fever >100.5/ROBBINS Aspirin 325 mg 04/29/22 10:00 Aspirin 325 Mg Tab PO QDAY [facility] Clopidogrel Bisulfate 75 mg 04/29/22 10:00 Clopidogrel 75 Mg Tab PO QDAY [facility] Famotidine 20 mg 04/28/22 22:00 04/28/22 23:10 Famotidine 20 Mg Tab PO 20 mg BID THEA Administration Heparin Sodium (Porcine) 5,000 unit 04/28/22 22:00 04/28/22 22:00 Heparin 5,000 Unit/1 Ml Vial SUB-Q 5,000 unit Q12HR THEA Administration Hydralazine HCl 10 mg 04/28/22 23:34 Hydralazine 20 Mg/1 Ml Inj IV Q4HR PRN hypertention Ceftriaxone Sodium 2 gm in 100 mls @ 200 mls/hr 04/29/22 10:00 Rocephin/Ns 2 Gm/100 Ml IV 04/30/22 10:29 Q24HR [facility] Protocol Metoclopramide HCl 10 mg 04/28/22 16:12 Metoclopramide 10 Mg/2 Ml Inj IV Q6H PRN Nausea And Vomiting Metronidazole 500 mg 04/29/22 09:00 Metronidazole 500 Mg Tab PO 05/06/22 08:59 Q8HR [facility] Protocol Morphine Sulfate 2 mg 04/28/22 16:12 Morphine 2 Mg/1 Ml Inj IV Q4H PRN Pain, Moderate (4-6) Nifedipine 60 mg 04/29/22 15:00 Nifedipine Xl 60 Mg Tab PO QDAY THEA Ondansetron HCl 4 mg 04/28/22 16:12 Ondansetron 4 Mg/2 Ml Inj IV Q8H PRN Nausea And Vomiting Oxycodone/Acetaminophen 1 tab 04/28/22 16:12 04/28/22 23:11 Oxycodone /Acetaminophen 5-325mg Tab PO 1 tab Q6H PRN Administration Pain, Moderate (4-6) Sodium Chloride 10 ml 04/28/22 22:00 04/28/22 23:11 Sodium Chloride 0.9% 10 Ml Flush Syringe IV 10 ml BID THEA Administration Sodium Chloride 10 ml 04/28/22 16:12 Sodium Chloride 0.9% 10 Ml Flush Syringe IV PRN PRN LINE FLUSH Valsartan 160 mg 04/28/22 23:45 04/28/22 23:48 Valsartan 160mg Tab PO 160 mg BID THEA Administration
[2022-04-29] MEDS: cefTRIAXone/NS 2 GM/100 ML 2 GM/100 ML BAG IV SCH (19:16)
[2022-04-29] MEDS: NIFEdipine XL 60 MG TAB PO SCH (19:17)
[2022-04-29] MEDS: oxyCODONE /ACETAMINOPHEN 5-325MG TAB PO PRN (19:17)
[2022-04-30] MEDS: metroNIDAZOLE 500 MG TAB PO SCH ×2 (05:39→14:17)
[2022-04-30] MEDS ORDERED: VALSARTAN 160MG TAB PO SCH (10:00)
[2022-04-30] MEDS ORDERED: carvediloL 6.25 MG TAB PO SCH (10:00)
[2022-04-30] MEDS: ASPIRIN 325 MG TAB PO SCH (11:10)
[2022-04-30] MEDS: CLOPIDOGREL 75 MG TAB PO SCH (11:11)
[2022-04-30] MEDS: FAMOTIDINE 20 MG TAB PO SCH (11:11)
[2022-04-30] MEDS: HEPARIN 5,000 UNIT/1 ML VIAL SUB-Q SCH (11:11)
[2022-04-30] MEDS: cefTRIAXone/NS 2 GM/100 ML 2 GM/100 ML BAG IV SCH (11:12)
[2022-04-30] MEDS: NIFEdipine XL 60 MG TAB PO SCH (11:12)
[2022-04-30 12:27] VITALS: BP 139/71
--- NOTE | 2022-04-30 12:51 | Discharge Summary ---
Providers - Providers Date of Admission: 04/28/22 16:12 Date of discharge: 04/30/22 Attending physician: AMINAH BARBER MD 04/28/22 16:12 Consult to Physician [CONS] Routine Comment: Consulting Provider: JESÚS ALLEN Physician Instructions: Reason For Exam: TIA 04/29/22 08:09 Consult to Physician [CONS] Routine Comment: Consulting Provider: EMILY MONTERO Physician Instructions: Reason For Exam: CVA workup Occupational Therapy Evaluate and Treat [CONS] Routine Comment: Reason For Exam: Stroke workup Physical Therapy For [place] Treatment [CONS] Routine Reason For Exam: Stroke workup 04/29/22 15:50 Consult Geriatric-Psych [CONS] Routine Consulting Provider: CHAR RENEE Reason For Exam: Panic attack Primary care physician: [employer] Hospitalization Reason for admission: Panic attack, TIArule out Condition: Serious Pertinent studies: Reviewed. Procedures: None. Hospital course: Patient is a 56-year-old female past medical history of hypertension, morbid obesity, history of CVA x2 with residual speech/language difficulty and right eye visual loss who presented with chest pain/pressure and change in consciousness after finding out that her family had been scammed out of a down payment for a new home. Patient describes an oncoming headache/pressure building up at the back of her head and weakness of her right upper and lower extremity. On presentation, the patient was found to be hypertensive but hemodynamically stable. The patient was unremarkable for positive troponins x2. The patient was reinitiated on oral antihypertensives. Patient underwent CT head noncontrast and CT angio head and neck that were found to be unremarkable. Neurology was consulted for further management. The patient underwent MRI brain without contrast that was found to be unremarkable for acute ischemic CVA. TTE was also unremarkable for PFO. Given the patient's history and order of events prior to symptoms, it is believed that the patient was having a possible panic attack versus stress induced conversion disorder. Patient was counseled about other outlets in which to destress, she expressed understanding. Patient was found to have acute cystitis without hematuria in addition to trichomoniasis on her urinalysis. Patient was initiated on Rocephin and Flagyl. Patient will complete her antibiotic course upon discharge. Patient is medically clear for discharge. Disposition: 01 HOME / SELF CARE / HOMELESS Final Discharge Diagnosis (Prints w/discharge instructions): Panic attack, history of acute ischemic CVA x2, hypertensive emergency, acute hypoxic respiratory failure, acute cystitis without hematuria, trichomoniasis, mild protein caloric malnutrition, morbid obesity. Time spent for discharge: 45 min Core Measure Documentation - Palliative Care Palliative Care/ Comfort Measures: Not Applicable - Core Measures Any of the following diagnoses?: history only Exam - Constitutional Vitals: Temp Pulse Resp BP Pulse Ox 98.3 F 87 18 139/71 96 04/30/22 11:58 04/30/22 11:58 04/30/22 03:50 04/30/22 11:58 04/30/22 11:58 General appearance: Present: no acute distress, obese - EENT Eyes: Present: PERRL, EOM intact ENT: hearing intact, clear oral mucosa, dentition normal - Neck Neck: Present: supple, normal ROM - Respiratory Respiratory effort: normal Respiratory: bilateral: diminished - Cardiovascular Rhythm: regular Heart Sounds: Present: S1 & S2 - Extremities Extremities: no ischemia, pulses intact, pulses symmetrical, No edema, normal temperature, normal color Peripheral Pulses: within normal limits - Abdominal General gastrointestinal: Present: soft, non-tender, non-distended, normal bowel sounds Female genitourinary: Present: deferred - Rectal Rectal Exam: deferred - Integumentary Integumentary: Present: clear, warm, dry - Musculoskeletal Musculoskeletal: right sided weakness - Psychiatric Psychiatric: appropriate mood/affect, cooperative - Neurologic Neurologic: CNII-XII intact, moves all extremities - Allied Health Allied health notes reviewed: nursing Plan Activity: advance as tolerated Diet: low salt Additional Instructions: Patient is a 56-year-old female past medical history of hypertension, morbid obesity, history of CVA x2 with residual speech/language difficulty and right eye visual loss who presented with chest pain/pressure and change in consciousness after finding out that her family had been scammed out of a down payment for a new home. Patient describes an oncoming headache/pressure building up at the back of her head and weakness of her right upper and lower extremity. On presentation, the patient was found to be hypertensive but hemodynamically stable. The patient was unremarkable for positive troponins x2. The patient was reinitiated on oral antihypertensives. Patient underwent CT head noncontrast and CT angio head and neck that were found to be unremarkable. Neurology was consulted for further management. The patient underwent MRI brain without contrast that was found to be unremarkable for acute ischemic CVA. TTE was also unremarkable for PFO. Given the patient's history and order of events prior to symptoms, it is believed that the patient was having a possible panic attack versus stress induced conversion disorder. Patient was counseled about other outlets in which to destress, she expressed understanding. Patient was found to have acute cystitis without hematuria in addition to trichomoniasis on her urinalysis. Patient was initiated on Rocephin and Flagyl. Patient will complete her antibiotic course upon discharge. Patient is medically clear for discharge. Care Plan Goals: Patient is medically clear for discharge. Assessment: Patient is a 56-year-old female past medical history of hypertension, morbid obesity, history of CVA x2 with residual speech/language difficulty and right eye visual loss who presented with chest pain/pressure and change in consciousness after finding out that her family had been scammed out of a down payment for a new home. Patient describes an oncoming headache/pressure building up at the back of her head and weakness of her right upper and lower extremity. On presentation, the patient was found to be hypertensive but hemodynamically stable. The patient was unremarkable for positive troponins x2. The patient was reinitiated on oral antihypertensives. Patient underwent CT head noncontrast and CT angio head and neck that were found to be unremarkable. Neurology was consulted for further management. The patient underwent MRI brain without contrast that was found to be unremarkable for acute ischemic CVA. TTE was also unremarkable for PFO. Given the patient's history and order of events prior to symptoms, it is believed that the patient was having a possible panic attack versus stress induced conversion disorder. Patient was counseled about other outlets in which to destress, she expressed understanding. Patient was found to have acute cystitis without hematuria in addition to trichomoniasis on her urinalysis. Patient was initiated on Rocephin and Flagyl. Patient will complete her antibiotic course upon discharge. Patient is medically clear for discharge. Follow up with: PRIMARY MD NADER [Primary Care Provider] - 7 Days Prescriptions: carvediloL [Coreg] 6.25 mg PO BID #60 tablet Valsartan [Diovan] 160 mg PO DAILY #30 tablet metroNIDAZOLE [Flagyl TAB] 500 mg PO Q8HR #18 tablet Clopidogrel [Plavix] 75 mg PO QDAY #30 tablet NIFEdipine XL [Procardia Xl] 60 mg PO QDAY #30 tablet
== END 2022-04-30 16:17 | disposition home or self-care (01) | DRG 689 ==
LOC: 4A 16:12
PROVIDERS: ADMIT Internal Medicine; ATTEND Student in an Organized Health Care Education/Training Program
DX: N30.00 Acute cystitis without hematuria (principal); J96.01 Acute respiratory failure with hypoxia; I16.1 Hypertensive emergency; E44.1 Mild protein-calorie malnutrition; Z68.42 Body mass index [BMI] 45.0-49.9, adult; I69.954 Hemiplegia and hemiparesis following unspecified cerebrovascular disease affecting left non-dominant side; I10 Essential (primary) hypertension; R47.1 Dysarthria and anarthria; F41.9 Anxiety disorder, unspecified; F10.20 Alcohol dependence, uncomplicated; Y90.9 Presence of alcohol in blood, level not specified; A59.9 Trichomoniasis, unspecified; R29.810 Facial weakness; E66.01 Morbid (severe) obesity due to excess calories; Z82.49 Family history of ischemic heart disease and other diseases of the circulatory system; Z79.899 Other long term (current) drug therapy
CPT/HCPCS: 36415; 70450; 70496; 70498; 70551; 80053; 80061; 80307; 80320; 81001; 82550; 82553; 83036; 84484; 85025; 85610; 85670; 85730; 86850; 86900; 86901; 87086; 93005; 93306; 94760; G0378; J3490; C8929; G0480; J0696; J1644; J2270; Q9967